=== PATIENT | female | born 1995 | race Caucasian/White ===

== ENCOUNTER 2020-09-25 02:31 | Outpatient (CLI) | payer MEDICAID, SELFPAY ==
--- NOTE | 2020-09-25 | DI.US_ITS ---
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 COMPARISON: US OB ASSESSMENT - WEIGHT/SUN from 10/26/2017 FINDINGS: Ultrasound guidance was provided for reported trigger point injection performed by Dr. Evans. Please see Dr. Evans's procedure note. IMPRESSION: DATA REPOSITORY:
[2020-09-25 13:14] VITALS: BP 94/60; PULSE 79; RESP 17; TEMP 36.8; O2SAT 99
--- NOTE | 2020-09-25 13:50 | PDOC.PAIN_ITS ---
Pain Clinic Procedure Note Procedure Note Procedure Note: ULTRASOUND GUIDED RIGHT trapezius, thoracic paraspinous and rhomboid muscle trigger point INJECTIONS Date of service: September 25, 2020 Pre-Procedural Evaluation: Katiana Agosto has been referred to the [facility] for an Ultrasound Guided [right trapezius, thoracic paraspinous, and rhomboid muscle trigger point injections for a chief complaint of right upper back pain. Pre-procedure Pain Score: 6/10 DX: Muscle pain Patient was interviewed and the medical record reviewed. There were no medical, pharmacologic, radiographic, or other structural contraindications to preforming an ultrasound guided injection. Risks and expected side effects as well as potential benefits of the procedure were reviewed. The patient consent form was signed and witnessed. Standard time-out procedure was performed. The use of direct ultrasound visualization of the needle (rather than a non- guided injection) was required to increase patient safety by excluding inadvertent intramuscular, intratendinous, or intraneural needle placement and minimizing bleeding by avoiding osteochondral or vascular injury from the needle. Additionally, the increased accuracy of placement may increase clinical effectiveness and will allow higher diagnostic specificity when evaluating effectiveness of this injection. Procedure Description: The patient was placed in the prone position and automated blood pressure cuff and pulse oximeter applied for monitoring during the procedure and recorded in the medical record. Pre-injection ultrasound scanning of the area of interest was performed using linear transducer, identifying relevant anatomy, landmarks, and neurovascular structures allowing for optimal needle path. The site was then prepared in the usual sterile fashion, using thorough Chlorhexadine preparation of the skin and sterile draping. The same ultrasound transducer was then passed into the sterile field using sterile probe cover and sterile ultrasound gel. The injection target was again visualized. Skin and subcutaneous tissues were anesthetized with 3 mL of 1% Lidocaine. A 21G 3.5 Pajunk ultrasound needle was placed under live ultrasound guidance, using an in-plane approach, to the target area. After visualization of the needle tip at the target area, a mixture of 4 mL 2% Lidocaine and 1 mL Depomedrol (40 mg/cc), totaling 5 mL of injectate was delivered after negative aspiration for blood. Ultrasound images were captured and stored for documentation purposes. The needles were flushed with 1/2 cc of 2% Lidocaine and removed without difficulty. Post-procedure Pain Score:2/10 Vital signs were stable throughout the procedure and were as recorded in the docflowsheet by the nursing staff. Follow up plans and appointments were discussed with the patient.Post procedure instruction was given as documented in nursing documentation and having met discharge criteria, they were discharged from the [facility]. COMMENTS: She did very well with the procedure. Crescencio Evans DO, MPH Pain Management
[2020-09-25 13:58] VITALS: PULSE 70; O2SAT 100
[2020-09-25] MEDS: Lidocaine 2% Pres-Free 5 ML VIAL IJ (14:25)
[2020-09-25] MEDS: methylPREDNISolone ACETATE 40 MG/ML VIAL IJ (14:25)
== END 2020-09-25 02:51 ==
PROVIDERS: PCP Internal Medicine; Visit Provider Preventive Medicine Occupational Medicine
DX: M79.18 Myalgia, other site (principal)
CPT/HCPCS: 20553; 76942; J1030

== ENCOUNTER 2021-01-08 01:50 | Outpatient (CLI) | payer MEDICAID, SELFPAY ==
--- NOTE | 2021-01-08 | DI.US_ITS ---
Exam(s) US PAIN CLINIC NEEDLE GUIDANCE EXAM: MYOFASCIAL PAIN SYNDROPE T SPINE,RT CERVICO OCCIPITAL NEURALGIA COMPARISON: US US PAIN CLINIC NEEDLE GUIDANCE from 09/25/2020 TECHNIQUE: Ultrasound performed using standard protocol. FINDINGS: Ultrasound guidance was for trigger point injection guidance. IMPRESSION: DATA REPOSITORY:
[2021-01-08 12:25] VITALS: BP 107/60; PULSE 70; RESP 18; TEMP 36.7; O2SAT 99
--- NOTE | 2021-01-08 13:10 | PDOC.PAIN_ITS ---
Pain Clinic Procedure Note Procedure Note Procedure Note: ULTRASOUND GUIDED [RIGHT Trapzius, Rhomboid, and Thoracic Paraspinous Trigger point INJECTIONS Pre-Procedural Evaluation: Katiana Agosto has been referred to the [facility] for an Ultrasound Guided bilateral injection for a chief complaint of right Trapzius, right Rhomboid, and right thoracic paraspinous muscles. Pre-procedure Pain Score: 6/10 Dx: Muscle pain Patient was interviewed and the medical record reviewed. There were no medical, pharmacologic, radiographic, or other structural contraindications to preforming an ultrasound guided injection. Risks and expected side effects as well as potential benefits of the procedure were reviewed. The patient consent form was signed and witnessed. Standard time-out procedure was performed. The use of direct ultrasound visualization of the needle (rather than a non- guided injection) was required to increase patient safety by excluding inadvertent intramuscular, intratendinous, or intraneural needle placement and minimizing bleeding by avoiding osteochondral or vascular injury from the needle. Additionally, the increased accuracy of placement may increase clinical effectiveness and will allow higher diagnostic specificity when evaluating effectiveness of this injection. Procedure Description: The patient was placed in the prone position and automated blood pressure cuff and pulse oximeter applied for monitoring during the procedure and recorded in the medical record. Pre-injection ultrasound scanning of the area of interest was performed using linear transducer, identifying relevant anatomy, landmarks, and neurovascular structures allowing for optimal needle path. The site was then prepared in the usual sterile fashion, using thorough Chlorhexadine preparation of the skin and sterile draping. The same ultrasound transducer was then passed into the sterile field using sterile probe cover and sterile ultrasound gel. The injection target was again visualized. Skin and subcutaneous tissues were anesthetized with 3 mL of 2% Lidocaine. A 21G [employer] ultrasound 3.5 inch needle was placed under live ultrasound guidance, using an in-plane approach, to the target area. After visualization of the needle tip at the target area, a mixture of 1 mL and 1/4 cc of Dexamethasone (10 mg/cc) in four different spots, totaling 5 mL of injectate was delivered after negative aspiration for blood. Ultrasound images were captured and stored for documentation purposes. Post-procedure Pain Score: 1/10 Vital signs were stable throughout the procedure and were as recorded in the docflowsheet by the nursing staff. Follow up plans and appointments were discussed with the patient.Post procedure instruction was given as documented in nursing documentation and having met discharge criteria, they were discharged from the [facility]. COMMENTS: She did very well with the procedure Crescencio Evans DO, MPH Pain Management
[2021-01-08 13:13] VITALS: PULSE 70; O2SAT 100
[2021-01-08] MEDS: Dexamethasone Sod. Phos./Pres-Free 10 MG/ML VIAL IJ (13:14)
[2021-01-08] MEDS: Lidocaine 2% Pres-Free 5 ML VIAL IJ (13:14)
== END 2021-01-08 02:10 ==
PROVIDERS: PCP Internal Medicine; Visit Provider Preventive Medicine Occupational Medicine
DX: M79.18 Myalgia, other site (principal)
CPT/HCPCS: 20553; 76942

== ENCOUNTER 2021-04-28 09:48 | Outpatient (CLI) | payer MEDICAID, SELFPAY ==
[2021-04-28 11:09] LABS: Source Nasal/Nares
[2021-04-28 14:15] LABS: COVID-19 PCR Negative (Negative)
== END 2021-04-28 09:49 | disposition home or self-care (01) ==
LOC: LBO 09:49
PROVIDERS: PCP Internal Medicine; Visit Provider Preventive Medicine Occupational Medicine
DX: Z20.822 Contact with and (suspected) exposure to COVID-19 (principal)
CPT/HCPCS: 87635

== ENCOUNTER 2021-04-30 02:17 | Outpatient (CLI) | payer MEDICAID, SELFPAY ==
--- NOTE | 2021-04-30 | DI.US_ITS ---
Exam(s) US PAIN CLINIC NEEDLE GUIDANCE EXAM: MYOFASCIAL PAIN SYNDROME OF T SPINE, RT CERVICO-OCCIPITAL NEURALGIA,M54.6, COMPARISON: US US PAIN CLINIC NEEDLE GUIDANCE from 01/08/2021 TECHNIQUE: Ultrasound performed using standard protocol. FINDINGS: Ultrasound guidance was provided needle injection guidance. Radiologist not present. IMPRESSION: DATA REPOSITORY:
[2021-04-30 10:10] VITALS: BP 108/69; PULSE 86; RESP 18; TEMP 36.5; O2SAT 98
--- NOTE | 2021-04-30 10:47 | PDOC.PAIN_ITS ---
Pain Clinic Procedure Note Procedure Note Procedure Note: ULTRASOUND GUIDED [RIGHT CERVICAL PARASPINOUS, THORACIC PARASPINOUS, RHOMBOID, AND LEVATOR SCAPULAE MUSCLE TRIGGER POINT INJECTIONS Pre-Procedural Evaluation: Katiana Agosto has been referred to the [facility] for an Ultrasound Guided right cervical/thoracic paraspinous, Rhomboid, Levator Scapulae muscle trigger point injections for a chief complaint of right upper back and neck pain . Pre-procedure Pain Score: 5/10 Patient was interviewed and the medical record reviewed. There were no medical, pharmacologic, radiographic, or other structural contraindications to preforming an ultrasound guided injection. Risks and expected side effects as well as potential benefits of the procedure were reviewed. The patient consent form was signed and witnessed. Standard time-out procedure was performed. The use of direct ultrasound visualization of the needle (rather than a non- guided injection) was required to increase patient safety by excluding inadvertent intramuscular, intratendinous, or intraneural needle placement and minimizing bleeding by avoiding osteochondral or vascular injury from the needle. Additionally, the increased accuracy of placement may increase clinical effectiveness and will allow higher diagnostic specificity when evaluating effectiveness of this injection. Procedure Description: The patient was placed in the prone position and automated blood pressure cuff and pulse oximeter applied for monitoring during the procedure and recorded in the medical record. Pre-injection ultrasound scanning of the area of interest was performed using Linear transducer, identifying relevant anatomy, landmarks, and neurovascular structures allowing for optimal needle path. The site was then prepared in the usual sterile fashion, using thorough Chlorhexadine preparation of the skin and sterile draping. The same ultrasound transducer was then passed into the sterile field using sterile probe cover and sterile ultrasound gel. The injection target was again visualized. Skin and subcutaneous tissues were anesthetized with 5 mL of 1% Lidocaine. A 21 guage 3.5 Pajunk ultrasound needle was placed under live ultrasound guidance, using an in-plane approach, to the target area. After visualization of the needle tip at the target area, a mixture of 5 mL 2% Lidocaine and 1 mL Dexamethasone (10 mg/cc), totaling 6 mL of injectate was delivered after negative aspiration for blood. Ultrasound images were captured and stored for documentation purposes. Post-procedure Pain Score:0/10 Vital signs were stable throughout the procedure and were as recorded in the docflowsheet by the nursing staff. Follow up plans and appointments were discussed with the patient.Post procedure instruction was given as documented in nursing documentation and having met discharge criteria, they were discharged from the [facility]. COMMENTS: She is in PT once a week and completing home exercises nearly every day. Crescencio Evans DO, MPH [facility]-Pain Management
[2021-04-30] MEDS: Lidocaine 2% Pres-Free 5 ML VIAL IJ (10:49)
[2021-04-30] MEDS: Dexamethasone Sod. Phos./Pres-Free 10 MG/ML VIAL IJ (10:49)
[2021-04-30 10:52] VITALS: PULSE 77; RESP 18; O2SAT 99
== END 2021-04-30 02:37 ==
PROVIDERS: PCP Internal Medicine; Visit Provider Preventive Medicine Occupational Medicine
DX: M54.6 Pain in thoracic spine (principal); M54.2 Cervicalgia
CPT/HCPCS: 20553; 76942

== ENCOUNTER → 2021-09-30 00:42 | Outpatient (CLI) | payer MEDICAID, SELFPAY ==
--- NOTE | 2021-09-30 | DI.US_ITS ---
Exam(s) US PAIN CLINIC NEEDLE GUIDANCE EXAM: US PAIN CLINIC NEEDLE GUIDANCE CLINICAL HISTORY: MYOFASCIAL PAIN SYNDROME OF T SPINE, RT CERVICO-OCCIPITAL NEURALGIA, M79.1 TECHNIQUE: Realtime ultrasound imaging was performed. CONTRAST MATERIAL: None COMPARISON: No exams were available for comparison FINDINGS: Ultrasound was provided for Dr. Evans for guidance with performing pain clinic injection. Please see procedure note for details. IMPRESSION: DATA REPOSITORY:
[2021-09-30 07:56] VITALS: BP 114/69; PULSE 79; RESP 20; TEMP 36.6; O2SAT 100
[2021-09-30] MEDS: Lidocaine 1% Pres-Free 5 ML VIAL IJ (08:57)
[2021-09-30] MEDS: methylPREDNISolone ACETATE 40 MG/ML VIAL IJ (08:58)
[2021-09-30 09:00] VITALS: PULSE 78; O2SAT 100
--- NOTE | 2021-10-06 05:59 | PDOC.PAIN ---
Pain Clinic Procedure Note Procedure Note Procedure Note: ULTRASOUND GUIDED RIGHT CERVICAL PARASPINAL, RHOMBOID, AND LEVATOR SCAPULAE MUSCLE TRIGGER POINT INJECTIONS Pre-Procedural Evaluation: Katiana Agosto has been referred to the [facility] for an Ultrasound Guided right cervical paraspinal, rhomboid, and levator scapulae trigger point injections for a chief complaint of right neck and upper back pain. Pre-procedure Pain Score: 5/10 Patient was interviewed and the medical record reviewed. There were no medical, pharmacologic, radiographic, or other structural contraindications to preforming an ultrasound guided injection. Risks and expected side effects as well as potential benefits of the procedure were reviewed. The patient consent form was signed and witnessed. Standard time-out procedure was performed. The use of direct ultrasound visualization of the needle (rather than a non-guided injection) was required to increase patient safety by excluding inadvertent intramuscular, intratendinous, or intraneural needle placement and minimizing bleeding by avoiding osteochondral or vascular injury from the needle. Additionally, the increased accuracy of placement may increase clinical effectiveness and will allow higher diagnostic specificity when evaluating effectiveness of this injection. Procedure Description: The patient was placed in the prone position and automated blood pressure cuff and pulse oximeter applied for monitoring during the procedure and recorded in the medical record. Pre-injection ultrasound scanning of the area of interest was performed using linear transducer, identifying relevant anatomy, landmarks, and neurovascular structures allowing for optimal needle path. The site was then prepared in the usual sterile fashion, using thorough Chlorhexadine preparation of the skin and sterile draping. The same ultrasound transducer was then passed into the sterile field using sterile probe cover and sterile ultrasound gel. The injection target was again visualized. Skin and subcutaneous tissues were anesthetized with 3 mL of 1% Lidocaine. A 21G 3.5 Pajunk ultrasound needle was placed under live ultrasound guidance, using an in-plane approach, to the target area. After visualization of the needle tip at the target area, a mixture of 5 mL 2% Lidocaine and 1 cc of Depomedrol (40 mg./cc) after negative aspiration for blood. The needle was flushed with 1% Lidocaine each time prior to removal. Ultrasound images were captured and stored for documentation purposes. Post-procedure Pain Score:1/10 Vital signs were stable throughout the procedure and were as recorded in the docflowsheet by the nursing staff. Follow up plans and appointments were discussed with the patient.Post procedure instruction was given as documented in nursing documentation and having met discharge criteria, they were discharged from the Pain Management Center. COMMENTS: She did well with the procedure. Crescencio Evans DO, MPH [facility]-Pain Management [facility]-Center for Pain Management
== END ==
PROVIDERS: PCP Internal Medicine; Visit Provider Preventive Medicine Occupational Medicine
DX: M54.6 Pain in thoracic spine (principal); M54.2 Cervicalgia
CPT/HCPCS: 20553; 76942; J1030

== ENCOUNTER 2022-03-31 14:47 | Outpatient (CLI) | payer MEDICAID, SELFPAY ==
[2022-03-31 14:51] VITALS: BP 109/63; PULSE 77; RESP 20; TEMP 36.9; O2SAT 98
--- NOTE | 2022-03-31 15:38 | PDOC.PAIN ---
Date of service: 03/31/22 Time of Service: 15:38 Pain Clinic Procedure Note Procedure Note Procedure Note: ULTRASOUND GUIDED RIGHT CERVICAL AND UPPER BACK TRIGGER POINT INJECTIONS Pre-Procedural Evaluation: Katiana Agosto has been referred to the [facility] for an Ultrasound Guided right cervical paraspinous, trapezius, rhomoid, and latisimus dorsi injection for a chief complaint of upper back and neck pain. Pre-procedure Pain Score: 7/10 Dx: Muscle pain Patient was interviewed and the medical record reviewed. There were no medical, pharmacologic, radiographic, or other structural contraindications to preforming an ultrasound guided injection. Risks and expected side effects as well as potential benefits of the procedure were reviewed. The patient consent form was signed and witnessed. Standard time-out procedure was performed. The use of direct ultrasound visualization of the needle (rather than a non-guided injection) was required to increase patient safety by excluding inadvertent intramuscular, intratendinous, or intraneural needle placement and minimizing bleeding by avoiding osteochondral or vascular injury from the needle. Additionally, the increased accuracy of placement may increase clinical effectiveness and will allow higher diagnostic specificity when evaluating effectiveness of this injection. Procedure Description: The patient was placed in the prone position and automated blood pressure cuff and pulse oximeter applied for monitoring during the procedure and recorded in the medical record. Pre-injection ultrasound scanning of the area of interest was performed using linear transducer, identifying relevant anatomy, landmarks, and neurovascular structures allowing for optimal needle path. The site was then prepared in the usual sterile fashion, using thorough Chlorhexadine preparation of the skin and sterile draping. The same ultrasound transducer was then passed into the sterile field using sterile probe cover and sterile ultrasound gel. The injection target was again visualized. Skin and subcutaneous tissues were anesthetized with 3 mL of 1% Lidocaine. A 25 guage 1.5 inch needle was placed under live ultrasound guidance, using an in-plane approach, to the target area. After visualization of the needle tip at the target area, I injected 1 cc of 1% Lidocaine after negative aspiration for blood. I then injected 1/5 cc of Depomedrol (40 mg/cc) and followed this with another 1 cc of 1% Lidocaine. Under ultrasound guidance I advanced the needle through the muscle plane and into the muscle belly. This was repeated at multiple sites. Ultrasound images were captured and stored for documentation purposes. Post-procedure Pain Score:1/10 Vital signs were stable throughout the procedure and were as recorded in the docflowsheet by the nursing staff. Follow up plans and appointments were discussed with the patient.Post procedure instruction was given as documented in nursing documentation and having met discharge criteria, they were discharged from the Pain Management Center. COMMENTS: No complications. This procedure can be completed up to 3 times per 12 months if it remains effective. Crescencio Evans DO, MPH [facility]-Pain Management [facility]-Center for Pain Management
[2022-03-31 15:39] VITALS: PULSE 83; O2SAT 100
[2022-03-31] MEDS: methylPREDNISolone ACETATE 40 MG/ML VIAL IJ (15:40)
[2022-03-31] MEDS: Lidocaine 1% Pres-Free 5 ML VIAL IJ (15:41)
== END 2022-03-31 14:48 | disposition home or self-care (01) ==
LOC: PC 14:47
PROVIDERS: PCP Internal Medicine; Visit Provider Preventive Medicine Occupational Medicine
DX: M54.6 Pain in thoracic spine (principal); M54.2 Cervicalgia
CPT/HCPCS: 20553; 76942; J1030

== ENCOUNTER 2023-01-03 10:15 | Outpatient (CLI) | payer MEDICAID, SELFPAY ==
[2023-01-03 11:04] VITALS: PULSE 76; O2SAT 99
[2023-01-03] MEDS: Lidocaine 1% Pres-Free 5 ML VIAL IJ (11:10)
[2023-01-03] MEDS: methylPREDNISolone ACETATE 40 MG/ML VIAL IJ (11:10)
--- NOTE | 2023-01-03 13:52 | PDOC.PAIN_ITS ---
Date of service: 01/03/23 Time of Service: 10:00 Pain Managment Procedure Note Procedure Note Procedure Note: ULTRASOUND GUIDED right cervical paraspinous, trapezius, and rhomboid muscle trigger point injections Pre-Procedural Evaluation: Katiana Agosto has been referred to the [facility] for an Ultrasound Guided right cervical paraspinous, trapezius, and rhomboid muscle trigger point injections for a chief complaint of neck and upper back pain. Pre-procedure Pain Score: 5/10 Patient was interviewed and the medical record reviewed. There were no medical, pharmacologic, radiographic, or other structural contraindications to preforming an ultrasound guided injection. Risks and expected side effects as well as potential benefits of the procedure were reviewed. The patient consent form was signed and witnessed. Standard time-out procedure was performed. The use of direct ultrasound visualization of the needle (rather than a non- guided injection) was required to increase patient safety by excluding inadvertent intramuscular, intratendinous, or intraneural needle placement and minimizing bleeding by avoiding osteochondral or vascular injury from the needle. Additionally, the increased accuracy of placement may increase clinical effectiveness and will allow higher diagnostic specificity when evaluating effectiveness of this injection. Procedure Description: The patient was placed in the prone position and automated blood pressure cuff and pulse oximeter applied for monitoring during the procedure and recorded in the medical record. Pre-injection ultrasound scanning of the area of interest was performed using the linear transducer, identifying relevant anatomy, landmarks, and neurovascular structures allowing for optimal needle path. The site was then prepared in the usual sterile fashion, using thorough Chlorhexadine preparation of the skin and sterile draping. The same ultrasound transducer was then passed into the sterile field using sterile probe cover and sterile ultrasound gel. The injection target was again visualized. Skin and subcutaneous tissues were anesthetized with 2 mL of 1% Lidocaine. A 25G 1.5 skin needle was placed under live ultrasound guidance, using an in-plane approach, to the target area. After visualization of the needle tip at the target area, a mixture of 1/4 mL of Dexamethasone (10 mg/cc) of injectate was delivered after negative aspiration for blood. This was followed by 1 cc of 0.5% Bupivacaine. Ultrasound images were captured and stored for documentation purposes. Post-procedure Pain Score:0/10 Vital signs were stable throughout the procedure and were as recorded in the docflowsheet by the nursing staff. Follow up plans and appointments were discussed with the patient.Post procedure instruction was given as documented in nursing documentation and having met discharge criteria, they were discharged from the Pain Management Center. COMMENTS: She will resume her stretching routine. This procedure can be completed as needed. Crescencio Evans DO, MPH [facility]-Pain Management [facility]-Center for Pain Management
== END 2023-01-03 10:16 | disposition home or self-care (01) ==
PROVIDERS: PCP Internal Medicine; Visit Provider Preventive Medicine Occupational Medicine
DX: M54.2 Cervicalgia (principal); M54.6 Pain in thoracic spine
CPT/HCPCS: 20553; J1030